=== PATIENT | male | born 1955 | race Caucasian/White ===

== ENCOUNTER 2021-01-09 16:48 | Emergency (ER) | payer OTHER ==
[2021-01-09 17:10] VITALS: TEMP 97.8; BMI 30.1
[2021-01-09] MEDS ORDERED: SODIUM CHLORIDE 1,000 ML IV STA (18:53)
[2021-01-09] MEDS ORDERED: KETOROLAC TROMETHAMINE 30 MG/1 ML VIAL IVPUSH ONE (18:53)
[2021-01-09] MEDS ORDERED: KETOROLAC TROMETHAMINE 30 MG/1 ML VIAL ONE (19:06)
[2021-01-09 19:30] LABS: BASO % 1.3 % (0-2.0); HEMATOCRIT 43.8 % (35.4-49); MCH 31.9 pg (25.7-33.7); MCHC 34.3 g/dl (32.0-35.9); MEAN PLT VOLUME 8.6 fl (7.5-11.1); NEUT % 40.7 % (42.8-82.8); PLATELET COUNT 251 10^3/uL (134-434); RBC 4.71 M/mm3 (4.00-5.60); RDW 13.6 % (11.9-15.9); WHITE BLOOD COUNT 8.6 K/mm3 (4.0-10.0)
[2021-01-09 19:31] LABS: PH,URINE 5.5 (5.0-8.0); URINE APPEARANCE CLEAR; URINE BILIRUBIN NEGATIVE (NEGATIVE); URINE COLOR YELLOW; URINE GLUCOSE (UA) NEGATIVE (NEGATIVE); URINE KETONE TRACE (NEGATIVE); URINE LEUK ESTERASE NEGATIVE (NEGATIVE); URINE NITRITE NEGATIVE (NEGATIVE); URINE PROTEIN NEGATIVE (NEGATIVE)
[2021-01-09 19:49] LABS: ALBUMIN 3.4 g/dl (3.4-5.0); BLOOD UREA NITROGEN 16.6 mg/dL (7-18)
[2021-01-09 19:53] LABS: BILIRUBIN,TOTAL 0.2 mg/dL (0.2-1); TOT PROT 7.2 g/dl (6.4-8.2)
[2021-01-09 22:41] VITALS: BP 121/70; PULSE 62
== END 2021-01-09 22:42 | disposition home or self-care (01) ==
LOC: JER 16:48
PROC: 3E0333Z Introduction of Anti-inflammatory into Peripheral Vein, Percutaneous Approach (ICD-10-PCS; principal; 2021-01-09)
PROC: 3E0337Z Introduction of Electrolytic and Water Balance Substance into Peripheral Vein, Percutaneous Approach (ICD-10-PCS; 2021-01-09)
DX: R10.32 Left lower quadrant pain (principal); R10.31 Right lower quadrant pain
CPT/HCPCS: 36415; 74177-TC; 80053; 81003; 83690; 85025; 87086; 99285-25; Q9967

== ENCOUNTER 2024-01-21 06:43 | Emergency (ER) | payer OTHER ==
[2024-01-21 07:02] VITALS: BP 133/93; PULSE 48; RESP 18; TEMP 97.9; BMI 30.1
[2024-01-21] MEDS ORDERED: LIDOCAINE 5% TOPICAL PATCH ONE (08:31)
[2024-01-21] MEDS ORDERED: KETOROLAC TROMETHAMINE 30 MG/1 ML VIAL ONE (08:31)
[2024-01-21] MEDS: LIDOCAINE 5% TOPICAL PATCH TP ONE (08:35)
[2024-01-21] MEDS: KETOROLAC TROMETHAMINE 30 MG/1 ML VIAL IM ONE (08:35)
[2024-01-21] MEDS ORDERED: LIDOCAINE PATCH REMOVAL MC ONE (22:00)
== END 2024-01-21 10:37 | disposition home or self-care (01) ==
LOC: JER 06:43
PROC: 3E0133Z Introduction of Anti-inflammatory into Subcutaneous Tissue, Percutaneous Approach (ICD-10-PCS; principal; 2024-01-21)
DX: M54.12 Radiculopathy, cervical region (principal); M54.2 Cervicalgia; R20.0 Anesthesia of skin; R20.2 Paresthesia of skin
CPT/HCPCS: 99284-25